=== PATIENT | female | born 1995 | race African-American/Black ===

== ENCOUNTER 2016-09-09 10:13 | Emergency (ER) | payer BC ==
[~2016-09-09] VITALS: Ht 157.5 cm; Wt 50.0 kg
[~2016-09-09 10:13] MED LIST: AMOX500T PO
[2016-09-09 10:14] VITALS: BP 117/74; PULSE 94; RESP 18; TEMP 98.6; O2SAT 98
[2016-09-09 11:00] VITALS: O2SAT 99
[2016-09-09] MEDS ORDERED: SODIUM CHLORIDE 0.9% FLUSH 5 ML FLUSH IVF PRN (11:00)
[2016-09-09] MEDS ORDERED: ONDANSETRON HCL 4 MG/2 ML VIAL IVP ONE (11:00)
[2016-09-09] MEDS ORDERED: MORPHINE SULFATE 4 MG/ML INJ IV PUSH ONE (11:00)
--- NOTE | 2016-09-09 11:04 | PD ---
HPI Chief Complaint: Abdominal Pain Time Seen by Provider: 10:28 Travel History International Travel<30 days: No Contact w/Intl Traveler<30days: No Traveled to known affect area: No History of Present Illness HPI This is a 20-year-old female with no significant past medical history, who presents here today with complaints of abdominal pain with associated nausea vomiting. Patient states the pain started this morning. She reports the pain is right lower quadrant. She denies any dysuria urgency or frequency. She denies any vaginal discharge. Urine test was negative here. The patient has had no abdominal surgery. FORMERLY [facility], [facility]–1983 Past Medical History Medical History: Denies Significant Hx Immunizations Current: Yes ?: Not LMP: AUGUST 2016 Past Surgical History Surgical History: No Previous Surgery Social History Alcohol Use: No Tobacco Use: No Substance Use: No Allergies-Medications (Allergen,Severity, Reaction): Coded Allergies: No Known Allergies (Unverified , 09/09/16) Reported Meds & Prescriptions Reported Meds & Active Scripts Active Keflex (Cephalexin) 500 Mg Cap 500 Mg PO BID 10 Days Review of Systems Except as stated in HPI: all other systems reviewed are Neg General / Constitutional: No: Fever HENT: Positive: Rhinorrhea, Other (runny nose earlier), No: Headaches, Lightheadedness, Sore Throat Cardiovascular: No: Chest Pain or Discomfort, Palpitations Respiratory: No: Cough, Shortness of Breath Gastrointestinal: Positive: Nausea, Vomiting, Abdominal Pain (right lower quadrant), No: Constipation, Changes in Bowel Habits Genitourinary: No: Frequency, Dysuria, Pelvic Pain, Discharge, Vaginal Bleeding Musculoskeletal: No: Pain Neurologic: No: Headache, Change in Mentation Physical Exam Narrative GENERAL: Well-nourished, well-developed patient, in no acute distress. SKIN: Warm and dry. HEAD: Normocephalic/atraumatic. EYES: No scleral icterus. No injection or drainage. NECK: Supple, trachea midline. CARDIOVASCULAR: Regular rate and rhythm without murmurs, gallops, or rubs. RESPIRATORY: Breath sounds equal bilaterally. No accessory muscle use. GASTROINTESTINAL: Abdomen soft, nondistended. The patient had subjective right lower quadrant tenderness. There was no rebound or guarding noted. MUSCULOSKELETAL: No cyanosis, or edema. BACK: No CVA tenderness. NEUROLOGICAL: Awake and alert. Cranial nerves II through XII intact. Motor sensory grossly within normal limits. Five out of 5 muscle strength in all muscle groups. Normal speech. Data Data Last Documented VS Orders Complete Blood Count With Diff (09/09/16 10:57) Comprehensive Metabolic Panel (09/09/16 10:57) Lipase (09/09/16 10:57) Urinalysis - C+S If Indicated (09/09/16 10:57) Iv Access Insert/Monitor (09/09/16 10:57) Ecg Monitoring (09/09/16 10:57) Oximetry (09/09/16 10:57) Ondansetron Inj (Zofran Inj) (09/09/16 11:00) Sodium Chloride 0.9% Flush (Ns Flush) (09/09/16 11:00) Morphine Inj (Morphine Inj) (09/09/16 11:00) Ed Urine Pregnancytest Poc (09/09/16 10:57) Urine Culture (09/09/16 11:10) Labs Laboratory Tests Test 09/09/16 11:10 White Blood Count 10.8 TH/MM3 Red Blood Count 4.49 MIL/MM3 Hemoglobin 12.8 GM/DL Hematocrit 37.2 % Mean Corpuscular Volume 82.8 FL Mean Corpuscular Hemoglobin 28.5 PG Mean Corpuscular Hemoglobin 34.5 % Concent Red Cell Distribution Width 13.4 % Platelet Count 217 TH/MM3 Mean Platelet Volume 8.2 FL Neutrophils (%) (Auto) 84.1 % Lymphocytes (%) (Auto) 10.7 % Monocytes (%) (Auto) 4.3 % Eosinophils (%) (Auto) 0.8 % Basophils (%) (Auto) 0.1 % Neutrophils # (Auto) 9.1 TH/MM3 Lymphocytes # (Auto) 1.1 TH/MM3 Monocytes # (Auto) 0.5 TH/MM3 Eosinophils # (Auto) 0.1 TH/MM3 Basophils # (Auto) 0.0 TH/MM3 CBC Comment DIFF FINAL Differential Comment Urine Color YELLOW Urine Turbidity HAZY Urine pH 5.5 Urine Specific [place] 1.019 Urine Protein 100 mg/dL Urine Glucose (UA) NEG mg/dL Urine Ketones NEG mg/dL Urine Occult Blood LARGE Urine Nitrite POS Urine Bilirubin NEG Urine Urobilinogen LESS THAN 2.0 MG/DL Urine Leukocyte Esterase LARGE Urine RBC /hpf Urine WBC /hpf Urine Squamous Epithelial 5 /hpf Cells Urine Amorphous Sediment RARE Urine Bacteria MOD /hpf Urine Mucus FEW /lpf Microscopic Urinalysis Comment CULTURE INDICATED MDM Medical Decision Making Medical Screen Exam Complete: Yes Emergency Medical Condition: Yes Differential Diagnosis Appendicitis versus ovarian cyst versus gastroenteritis versus PID Narrative Course 20-year-old female presents today with complaints of abdominal discomfort. The patient was found to have a UTI. The patient was discharged by Mazin NEVES while I was in seeing another trauma patient. This was under direct supervision of this physician. Diagnosis Primary Impression: Urinary tract infection Med/Other Pt SpecificInfo: Prescription(s) given Scripts Cephalexin (Keflex)500 Mg [id number] Mg PO BID 10 Days Prov:Neel Pope MD 09/09/16 Disposition: 01 DISCHARGE HOME Condition: Stable Neel Pope MD Sep 09, 2016 11:04
[2016-09-09 11:35] LABS: AUTOMATED NEUTROPHIL # 9.1 TH/MM3 (1.8-7.7); BASOPHIL % 0.1 % (0.0-2.0); EOSINOPHIL # 0.1 TH/MM3 (0-0.4); EOSINOPHIL % 0.8 % (0.0-4.0); HEMATOCRIT 37.2 % (35.0-46.0); HEMO FLAGS DIFF FINAL; LYMPH % 10.7 % (9.0-44.0); LYMPHOCYTE # 1.1 TH/MM3 (1.0-4.8); MEAN CELL VOLUME 82.8 FL (80.0-100.0); MEAN CORPUSCULAR HEMOGLOBIN 28.5 PG (27.0-34.0); MEAN CORPUSCULAR HGB CONC 34.5 % (32.0-36.0); MONO % 4.3 % (0.0-8.0); NEUT % 84.1 % (16.0-70.0); PLATELET COUNT 217 TH/MM3 (150-450); RED BLOOD COUNT 4.49 MIL/MM3 (4.00-5.30); RED CELL DISTRIBUTION WIDTH 13.4 % (11.6-17.2); WHITE BLOOD COUNT 10.8 TH/MM3 (4.0-11.0)
[2016-09-09 12:02] LABS: ALT (GPT) 17 U/L (9-42); ANION GAP 8 MEQ/L (5-15); AST (GOT) 15 U/L (16-38); BICARBONATE 26.6 MEQ/L (21.0-32.0); BLOOD UREA NITROGEN 10 MG/DL (7-18); CHLORIDE 106 MEQ/L (98-107); GLOMERULAR FILTRATION RATE 110 ML/MIN (>89); POTASSIUM 3.4 MEQ/L (3.5-5.1); SODIUM (NA) 141 MEQ/L (136-145)
[2016-09-09 12:04] LABS: ALKALINE PHOSPHATASE 53 U/L (45-117); TOTAL BILIRUBIN ADULT 0.3 MG/DL (0.2-1.0)
[2016-09-09 12:05] LABS: BACTERIA, URINE MOD /hpf; BLOOD, URINE LARGE (NEG); COMMENT (UR) CULTURE INDICATED; CULTURE IF INDICATED CULTURE INDICATED; GLUCOSE,URINE NEG (NEG); KETONE, URINE NEG (NEG); MUCUS URINE FEW /lpf (OCC); PH, URINE 5.5 (5.0-8.5); SQUAMOUS EPITHELIAL CELL URINE 5 /hpf (0-5); URINE COLOR YELLOW (YELLW/STRAW)
[2016-09-09 12:06] LABS: NITRITE,URINE POS (NEG)
[2016-09-09] MEDS ORDERED: CEPH-460 PO (13:19)
--- NOTE | 2016-09-09 13:22 | PD ---
Physical Exam Date Seen by Provider: Sep 09, 2016 Time Seen by Provider: 13:20 Narrative 20-year-old female that presents to the ED for evaluation of lower abdominal pain. I was asked by my attending to disposition the patient pending labs. Labs essentially showed UTI. No other sign of acute disease. Data Data Last Documented VS Vital Signs Date Time Temp Pulse Resp B/P Pulse Ox O2 Delivery O2 Flow Rate FiO2 09/09/16 10:30 18 09/09/16 10:14 98.6 94 117/74 98 Room Air Orders Complete Blood Count With Diff (09/09/16 10:57) Comprehensive Metabolic Panel (09/09/16 10:57) Lipase (09/09/16 10:57) Urinalysis - C+S If Indicated (09/09/16 10:57) Iv Access Insert/Monitor (09/09/16 10:57) Ecg Monitoring (09/09/16 10:57) Oximetry (09/09/16 10:57) Ondansetron Inj (Zofran Inj) (09/09/16 11:00) Sodium Chloride 0.9% Flush (Ns Flush) (09/09/16 11:00) Morphine Inj (Morphine Inj) (09/09/16 11:00) Ed Urine Pregnancytest Poc (09/09/16 10:57) Urine Culture (09/09/16 11:10) Labs Laboratory Tests Test 09/09/16 11:10 White Blood Count 10.8 TH/MM3 Red Blood Count 4.49 MIL/MM3 Hemoglobin 12.8 GM/DL Hematocrit 37.2 % Mean Corpuscular Volume 82.8 FL Mean Corpuscular Hemoglobin 28.5 PG Mean Corpuscular Hemoglobin 34.5 % Concent Red Cell Distribution Width 13.4 % Platelet Count 217 TH/MM3 Mean Platelet Volume 8.2 FL Neutrophils (%) (Auto) 84.1 % Lymphocytes (%) (Auto) 10.7 % Monocytes (%) (Auto) 4.3 % Eosinophils (%) (Auto) 0.8 % Basophils (%) (Auto) 0.1 % Neutrophils # (Auto) 9.1 TH/MM3 Lymphocytes # (Auto) 1.1 TH/MM3 Monocytes # (Auto) 0.5 TH/MM3 Eosinophils # (Auto) 0.1 TH/MM3 Basophils # (Auto) 0.0 TH/MM3 CBC Comment DIFF FINAL Differential Comment Urine Color YELLOW Urine Turbidity HAZY Urine pH 5.5 Urine Specific [place] 1.019 Urine Protein 100 mg/dL Urine Glucose (UA) NEG mg/dL Urine Ketones NEG mg/dL Urine Occult Blood LARGE Urine Nitrite POS Urine Bilirubin NEG Urine Urobilinogen LESS THAN 2.0 MG/DL Urine Leukocyte Esterase LARGE Urine RBC /hpf Urine WBC /hpf Urine Squamous Epithelial 5 /hpf Cells Urine Amorphous Sediment RARE Urine Bacteria MOD /hpf Urine Mucus FEW /lpf Microscopic Urinalysis Comment CULTURE INDICATED Sodium Level 141 MEQ/L Potassium Level 3.4 MEQ/L Chloride Level 106 MEQ/L Carbon Dioxide Level 26.6 MEQ/L Anion Gap 8 MEQ/L Blood Urea Nitrogen 10 MG/DL Creatinine 0.81 MG/DL Estimat Glomerular Filtration 110 ML/MIN Rate Random Glucose 95 MG/DL Calcium Level 9.1 MG/DL Total Bilirubin 0.3 MG/DL Aspartate Amino Transf 15 U/L (AST/SGOT) Alanine Aminotransferase 17 U/L (ALT/SGPT) Alkaline Phosphatase 53 U/L Total Protein 7.7 GM/DL Albumin 3.9 GM/DL Lipase 90 U/L [facility] Medical Record Reviewed: Yes Supervised Visit with THIERRY: No Interpretation(s) CBC & BMP Diagram 09/09/16 11:10 UA shows UTI LFTs and lipase WNL Differential Diagnosis Cystitis versus UTI versus abdominal pain Narrative Course 20-year-old female that presents to the ED for evaluation of lower abdominal pain. Patient was properly examined and was found to have signs and symptoms which appear to be consistent with UTI. My attending Dr. Pope initially evaluated the patient and asked me to disposition the patient pending labs. Labs show UTI. This was discussed in my attending Dr Pope who recommends discharging patient with Keflex for infection and follow up with PCP. Motrin Tylenol for pain. See ED worsening symptoms. Drinking fluids. Diagnosis Primary Impression: UTI (urinary tract infection) Qualified Code: N30.00 - Acute cystitis without hematuria Patient Instructions: General Instructions Additional Instruction: Drinking fluids. Take Motrin or Tylenol for pain. Take antibiotic as prescribed. See ED if worsening symptoms. Follow with PCP. Med/Other Pt SpecificInfo: Prescription(s) given Scripts Cephalexin (Keflex)500 Mg [id number] Mg PO BID 10 Days Prov:Neel Pope MD 3/21/17 Disposition: 01 DISCHARGE HOME Condition: Stable Lele Edgar Sep 09, 2016 13:22
== END 2016-09-09 13:37 | disposition home or self-care (01) ==
LOC: NEPE 10:13
DX: N30.00 Acute cystitis without hematuria (principal); B96.20 Unspecified Escherichia coli [E. coli] as the cause of diseases classified elsewhere
CPT/HCPCS: 80053; 81001; 83690; 84703; 85025; 87077; 87086; 87186; 96374; 96375; 99284; J2270; J2405

== ENCOUNTER 2016-12-02 21:56 | Emergency (ER) | payer SELFPAY ==
[~2016-12-02] VITALS: Ht 157.5 cm; Wt 50.0 kg
[~2016-12-02 21:56] MED LIST changes: -AMOX500T PO; +CEPH-460 PO
[2016-12-02 21:57] VITALS: BP 99/72; PULSE 99; RESP 18; TEMP 98.5; O2SAT 99
== END 2016-12-02 23:28 | disposition left against medical advice (07) ==
LOC: NED 21:56
DX: N94.9 Unspecified condition associated with female genital organs and menstrual cycle (principal)
CPT/HCPCS: 99281